=== PATIENT | male | born 1965 | race Caucasian/White ===

== ENCOUNTER → 2023-07-13 | Outpatient (REF) | payer BC, SELFPAY | LOC: DHSLP | PROVIDERS: ATTENDING PHYSICIAN Physician Assistant | DX: G47.33 Obstructive sleep apnea (adult) (pediatric) (principal) | CPT/HCPCS: 95800 ==

== ENCOUNTER → 2024-03-27 16:34 | Outpatient (REF) | payer BC, SELFPAY | LOC: RAD 16:34 | PROVIDERS: ATTENDING PHYSICIAN Family Medicine | DX: J18.9 Pneumonia, unspecified organism (principal) | CPT/HCPCS: 71046 ==